=== PATIENT | female | born 1990 | race African-American/Black ===

== ENCOUNTER 2019-02-25 09:22 | Emergency (ER) | payer OTHER ==
[2019-02-25 10:04] VITALS: BP 111/65
[2019-02-25] MEDS ORDERED: Dexamethasone TAB* 4 MG PO ONE (10:11)
--- NOTE | 2019-02-25 10:12 | UC ---
General HPI - HPI Summary HPI Summary: per triage, c/o sore throat that started Monday. States yesterday, while turning head, throat was sore. States concerned for strep throat. [ End ] c/o pain with swallowing and very bad breath with this. - History of Current Complaint Chief Complaint: UCRespiratory Stated Complaint: ST Time Seen by Provider: 02/25/19 10:00 Hx Obtained From: Patient Hx Last Menstrual Period: 02/09/19 Onset/Duration: Gradual Onset Timing: Constant Pain Intensity: 6 Associated Signs & Symptoms: Negative: Cough - Allergy/Home Medications Allergies/Adverse Reactions: Allergies Allergy/AdvReac Type Severity Reaction Status Date / Time No Known Allergies Allergy Verified 02/25/19 09:59 PMH/Surg Hx/FS Hx/Imm Hx Previously Healthy: Yes - Surgical History Surgical History: Yes Surgery Procedure, Year, and Place: - Family History Known Family History: Positive: Non-Contributory - Social History Occupation: Employed Full-time Alcohol Use: None Substance Use Type: None Smoking Status (MU): Never Smoked Tobacco Review of Systems All Other Systems Reviewed And Are Negative: Yes Constitutional: Negative: Fever Eyes: Negative: Eye Redness ENT: Positive: Sore Throat. Negative: Ear Ache, Sinus Pain/Tenderness Respiratory: Negative: Shortness Of Breath, Cough Physical Exam Triage Information Reviewed: Yes Appearance: Well-Appearing Vital Signs: Initial Vital Signs Temp 98.8 F 02/25/19 09:59 Pulse 73 02/25/19 09:59 Resp 16 02/25/19 09:59 BP 111/65 02/25/19 09:59 Pulse Ox 100 02/25/19 09:59 Vital Signs Reviewed: Yes Eyes: Positive: Conjunctiva Clear ENT: Positive: Pharyngeal erythema - deep with diffuse moderate swelling, TMs normal, Tonsillar swelling, Uvula midline - but moderately swollen. Negative: Trismus, Muffled voice, Hoarse voice, Sinus tenderness Neck: Positive: Supple, Tenderness @ - peritonsilar, Enlarged Nodes @ - peritonsilar Respiratory: Positive: No respiratory distress Cardiovascular: Positive: RRR Abdomen Description: Positive: Nontender Musculoskeletal: Positive: ROM Intact Neurological: Positive: Alert Psychological: Positive: Age Appropriate Behavior Skin Exam: Normal Skin: Negative: Rashes Diagnostics - Laboratory Lab Results: rapid strep=positive Course/Dx - Diagnoses Provider Diagnosis: Strep pharyngitis Discharge - Sign-Out/Discharge Documenting (check all that apply): Patient Departure All imaging exams completed and their final reports reviewed: No Studies - Discharge Plan Condition: Stable Disposition: HOME Prescriptions: Amoxicillin PO (*) [Amoxicillin 500 MG CAP*] 500 mg PO Q12H 10 Days #20 cap Dexamethasone TAB* [Decadron TAB*] 8 mg PO DAILY #4 tab Patient Education Materials: Strep Throat (ED) Forms: *Work Release Referrals: Harrison Mckee MD [Medical Doctor] - Additional Instructions: FOLLOW UP IF NOT BETTER IN 5-7 DAYS OR SOONER IF WORSE. - Billing Disposition and Condition Condition: STABLE Disposition: Home
== END 2019-02-25 10:23 | disposition home or self-care (01) ==
LOC: UCCORT 09:22
DX: J02.0 Streptococcal pharyngitis (principal)
CPT/HCPCS: 87651; 99202; G0463; J8540